=== PATIENT | female | born 1945 | race Caucasian/White ===

== ENCOUNTER 2017-10-20 14:32 | Outpatient (CLI) | payer MEDICARE ==
--- NOTE | 2017-10-20 15:42 | Mammography Report ---
DIGITAL DIAGNOSTIC BILATERAL MAMMOGRAM: 10/20/2017 CLINICAL INDICATION: Left lateral breast pain. COMPARISON: 12/26/2015, 09/03/2012, 03/09/2010. TECHNIQUE: Bilateral CC, MLO, left true lateral views were obtained. Markers were placed at the site of maximal tenderness identified by the patient in the 3 o'clock posterior left breast. FINDINGS: The breasts demonstrate fatty replacement bilaterally. A few punctate, typically benign calcifications are present. No suspicious masses, clustered microcalcifications, or regions of architectural distortion are identified. IMPRESSION: BENIGN FINDINGS. RECOMMENDATION: ROUTINE ANNUAL SCREENING UNLESS OTHERWISE CLINICALLY INDICATED. BIRADS CATEGORY 2-BENIGN FINDINGS. STANDARD QUALIFYING STATEMENTS: 1. This examination was reviewed with the aid of Computer-Aided Detection (CAD). 2. A negative or benign imaging report should not delay biopsy if clinically suspicious findings are present. Consider surgical consultation if warranted. More than 5% of cancers are not identified by imaging. 3. Dense breasts may obscure an underlying neoplasm. TD: 10/20/2017 15:39
== END 2017-10-20 14:33 | disposition home or self-care (01) ==
LOC: DI 14:32
PROVIDERS: ATTEND Registered Nurse
DX: N64.4 Mastodynia (principal)
CPT/HCPCS: 77066

== ENCOUNTER 2019-04-07 13:01 | Outpatient (CLI) | payer MEDICARE ==
--- NOTE | 2019-04-08 16:05 | Ultrasound Report ---
Reason: PELVIC PAIN Procedure Date: 04/07/2019 Accession Number: [id number] / [id number] Procedure: US - Pelvic w/Transvaginal CPT Code: FULL RESULT: EXAM: PELVIC ULTRASOUND EXAM DATE: 04/07/2019 02:32 PM. CLINICAL HISTORY: Left pelvic pain on palpation. COMPARISON: PELVIS 04/14/2008 8:21 PM. TECHNIQUE: Realtime transabdominal pelvic scan performed to identify the uterus and adnexa and as an overview of other pelvic structures, followed by transvaginal scan to provide greater detail of the uterus and adnexa, with static image documentation. FINDINGS: Uterus: 5.4 x 3.0 x 3.5 cm, volume 29.7 cc. Anteverted position. Normal overall size and echotexture. Masses: Mid posterior intramural fibroid 1.9 x 1.4 x 1.7 cm, with mass effect on the endometrial canal. Endometrium: 3 mm. Normal. Cervix: Unremarkable. Right Ovary: 1.8 x 1.2 x 1.8 cm, volume 2.0 cc. Normal echotexture and blood flow. Left Ovary: Obscured by bowel. Free Fluid: Small amount. Other: None. IMPRESSION: Posterior fundal intramural fibroid with mass effect on the endometrial canal, otherwise unremarkable pelvic ultrasound. RADIA
== END 2019-04-07 13:02 | disposition home or self-care (01) ==
LOC: DI 13:01
PROVIDERS: ATTEND Obstetrics & Gynecology
DX: D25.1 Intramural leiomyoma of uterus (principal)
CPT/HCPCS: 76830; 76856

== ENCOUNTER 2019-04-07 13:07 | Outpatient (CLI) | payer MEDICARE ==
--- NOTE | 2019-04-08 09:14 | Mammography Report ---
Reason: SCREENING MAMMOGRAM FOR BREAST CANCER Procedure Date: 04/07/2019 Accession Number: [id number] / [id number] Procedure: [facility] - Screening Mammo w/Naveed CPT Code: FULL RESULT: EXAM: Screening Mammo w/Naveed DATE: 04/07/2019 2:46 PM CLINICAL HISTORY: Screening encounter. History of early menses and late childbearing. Family history of breast cancer in the mother at the age of 65. TECHNIQUE: (B) - Bilateral CC and MLO views were obtained. COMPARISON: 10/20/2017 through 03/09/2010. PARENCHYMAL PATTERN: (F) - The breast(s) demonstrate(s) diffuse fatty replacement. FINDINGS: There are no suspicious masses, calcifications, or areas of distortion. IMPRESSION: Negative examination. BI-RADS category 1. RECOMMENDATION: (ANNUAL) - Recommend routine annual screening mammography. BI-RADS CATEGORY: (1) - Negative. STANDARD QUALIFYING STATEMENTS: 1. This examination was not reviewed with the aid of Computer-Aided Detection (CAD). 2. A negative or benign imaging report should not preclude biopsy if clinically suspicious findings are present. 3. Dense breasts may obscure an underlying neoplasm. 4. This examination was reviewed with the aid of 3D breast imaging (tomosynthesis).
== END 2019-04-07 13:08 | disposition home or self-care (01) ==
LOC: DI 13:07
PROVIDERS: ATTEND Obstetrics & Gynecology
DX: Z12.31 Encounter for screening mammogram for malignant neoplasm of breast (principal); Z80.3 Family history of malignant neoplasm of breast
CPT/HCPCS: 77063; 77067

== ENCOUNTER 2021-10-09 09:44 | Outpatient (CLI) | payer MEDICARE ==
--- NOTE | 2021-10-09 11:20 | DEXA Report ---
PROCEDURE: Dexa Spine and/or Hip INDICATIONS: MENOPAUSE TECHNIQUE: Dual energy x-ray absorptiometry (DXA) was performed on a [employer] System. Regions measur ed are the AP Spine, femoral neck, and if needed forearm. COMPARISON: None. FINDINGS: Lumbar Spine: Bone Mineral Density 1.409 g/cm/cm,T score 1.9, normal Left Hip: Bone Mineral Density 0.903 g/cm/cm,T score -0.8, normal Left Femoral Neck: Bone Mineral Density 0.946 g/cm/cm, T score -0.7, normal (T score greater or equal to -1.0: NORMAL) (T score from -1.1 to -2.4: OSTEOPENIA) (T score less than or equal to -2.5 to: OSTEOPOROSIS) Impression: Normal bone mineral density. Patients with diagnosis of osteoporosis or osteopenia should have regular bone mineral density assess ment. For those eligible for Medicare, routine testing is allowed once every 2 years. Testing frequ ency can be increased for patients who have rapidly progressing disease or for those who are receivin g medical therapy to restore bone mass. Reviewed by: Florencia Monzon MD, PhD on 10/09/2021 11:19 AM PST Approved by: Florencia Monzon MD, PhD on 10/09/2021 11:19 AM PST Station ID: [id number]
== END 2021-10-09 09:45 | disposition home or self-care (01) ==
LOC: DI 09:44
PROVIDERS: ATTEND Obstetrics & Gynecology
DX: Z78.0 Asymptomatic menopausal state (principal)